=== PATIENT | male | born 2000 | race Caucasian/White ===

== ENCOUNTER 2021-07-21 17:05 | Emergency (ER) | payer OTHER ==
[~2021-07-21] VITALS: Ht 175.3 cm; Wt 108.9 kg
--- NOTE | 2021-07-21 21:16 | REPVR ---
PROCEDURE INFORMATION: Exam: MR Lumbar Spine Without Contrast Exam date and time: 07/21/2021 8:24 PM Age: 21 years old Clinical indication: Low back pain; Additional info: Low back pain, radiculopathy, bowel/bladder dysfunction TECHNIQUE: Imaging protocol: Multiplanar magnetic resonance images of the lumbar spine without intravenous contrast. COMPARISON: No relevant prior studies available. FINDINGS: Vertebral body height and AP alignment is preserved. Negative for discitis/osteomyelitis. Conus medullaris terminates T12. No epidural fluid collection. L1-L2: No central or foraminal stenosis. L2-L3: No central or foraminal stenosis. L3-L4: Mild facet joint arthropathy without central or foraminal stenosis. L4-L5: Mild facet joint arthropathy without central or foraminal stenosis. L5-S1: Disc bulge with superimposed left central caudally migrating extrusion extending up to 8 mm below the adjacent endplate. There is edema of extruded disc material. No significant central canal compromise. Disc abuts the traversing left S1 nerve root without discrete displacement. Mild bilateral foraminal stenosis. IMPRESSION: 1. Disc bulge at L5-S1 with superimposed left central caudally migrating extrusion. No associated central canal stenosis. Disc contacts the traversing left S1 nerve root without discrete displacement. 2. Remaining lumbar levels are without focal herniation, central canal stenosis or significant foraminal compromise. Electronically signed by: Neil Moreira On 07/21/2021 21:16:08 PM
[2021-07-21 23:13] VITALS: BP 146/79
== END 2021-07-21 23:14 | disposition home or self-care (01) ==
LOC: M ED 17:05
DX: M51.27 Other intervertebral disc displacement, lumbosacral region (principal); R32 Unspecified urinary incontinence; G89.29 Other chronic pain; M54.9 Dorsalgia, unspecified